=== PATIENT | female | born 1990 | race Caucasian/White ===

== ENCOUNTER → 2017-11-28 10:39 | Outpatient (CLI) | payer MEDICAID ==
[2011-05-13 21:05] VITALS: BMI 36.7
[~2017-11-28 10:39] MED LIST: PRENATAL COMPLE1 TAB PO
[2017-11-28 11:15] LABS: UDS - AMPHET NEGATIVE QUAL (NEGATIVE); UDS - BARB NEGATIVE QUAL (NEGATIVE); UDS - BENZO NEGATIVE QUAL (NEGATIVE); UDS - COCAINE NEGATIVE QUAL (NEGATIVE); UDS - OPIATE NEGATIVE QUAL (NEGATIVE); UDS - PCP NEGATIVE QUAL (NEGATIVE); UDS - THC NEGATIVE QUAL (NEGATIVE)
[2017-11-28 11:18] LABS: APPEARANCE HAZY (CLEAR); BILIRUBIN NEGATIVE (NEGATIVE); COLOR DK YELLOW (YELLOW); EPITHELIAL CELLS 25-50 /hpf (0-5); GLUCOSE NEGATIVE (NEGATIVE); KETONE NEGATIVE (NEGATIVE); NITRITE NEGATIVE (NEGATIVE); PROTEIN TRACE mg/dL (NEGATIVE); RED CELLS - URINE RARE /hpf (0-5); SPECIFIC GRAVITY 1.005 (1.005-1.020); UROBILINOGEN NORMAL (NORMAL)
[2017-11-28 11:19] LABS: BACTERIA MANY /hpf (NONE SEEN); MUCUS <1+ /lpf (NONE SEEN)
[2017-12-04 02:16] VITALS: BMI 36.4
== END | disposition home or self-care (01) ==
LOC: D.LDO 10:39
PROVIDERS: Obstetrics & Gynecology
DX: Z34.83 Encounter for supervision of other normal pregnancy, third trimester (principal); Z3A.38 38 weeks gestation of pregnancy

== ENCOUNTER → 2017-12-02 14:15 | Outpatient (CLI) | payer MEDICAID ==
[2011-05-13 21:05] VITALS: BMI 36.7
[2017-12-02 14:45] LABS: APPEARANCE CLOUDY (CLEAR); BILIRUBIN NEGATIVE (NEGATIVE); COLOR YELLOW (YELLOW); GLUCOSE NEGATIVE (NEGATIVE); KETONE NEGATIVE (NEGATIVE); NITRITE NEGATIVE (NEGATIVE); PROTEIN NEGATIVE (NEGATIVE); RED CELLS - URINE OCC /hpf (0-5)
[2017-12-02 14:46] LABS: BACTERIA MODERATE /hpf (NONE SEEN); CALCIUM OXALATE CRYSTALS OCC /hpf (NONE SEEN); EPITHELIAL CELLS 25-50 /hpf (0-5); MUCUS <1+ /lpf (NONE SEEN)
[2017-12-02 14:48] LABS: UDS - AMPHET NEGATIVE QUAL (NEGATIVE); UDS - BARB NEGATIVE QUAL (NEGATIVE); UDS - BENZO NEGATIVE QUAL (NEGATIVE); UDS - COCAINE NEGATIVE QUAL (NEGATIVE); UDS - OPIATE NEGATIVE QUAL (NEGATIVE); UDS - PCP NEGATIVE QUAL (NEGATIVE); UDS - THC NEGATIVE QUAL (NEGATIVE)
[2017-12-04 02:16] VITALS: BMI 36.4
== END | disposition home or self-care (01) ==
LOC: D.LDO 14:15
PROVIDERS: Obstetrics & Gynecology
DX: O26.893 Other specified pregnancy related conditions, third trimester (principal); Z3A.38 38 weeks gestation of pregnancy

== ENCOUNTER → 2017-12-03 08:26 | Outpatient (CLI) | payer MEDICAID ==
[2011-05-13 21:05] VITALS: BMI 36.7
[2017-12-03 10:03] LABS: APPEARANCE HAZY (CLEAR); BILIRUBIN NEGATIVE (NEGATIVE); COLOR YELLOW (YELLOW); GLUCOSE NEGATIVE (NEGATIVE); KETONE NEGATIVE (NEGATIVE); NITRITE NEGATIVE (NEGATIVE); PROTEIN NEGATIVE (NEGATIVE); SPECIFIC GRAVITY 1.005 (1.005-1.020); UROBILINOGEN NORMAL (NORMAL)
[2017-12-03 10:04] LABS: BACTERIA MODERATE /hpf (NONE SEEN); RED CELLS - URINE RARE /hpf (0-5); WHITE CELLS - URINE 0-5 /hpf (0-5)
[2017-12-03 10:11] LABS: UDS - AMPHET NEGATIVE QUAL (NEGATIVE); UDS - BARB NEGATIVE QUAL (NEGATIVE); UDS - BENZO NEGATIVE QUAL (NEGATIVE); UDS - COCAINE NEGATIVE QUAL (NEGATIVE); UDS - OPIATE NEGATIVE QUAL (NEGATIVE); UDS - PCP NEGATIVE QUAL (NEGATIVE); UDS - THC NEGATIVE QUAL (NEGATIVE)
[2017-12-04 02:16] VITALS: BMI 36.4
== END | disposition home or self-care (01) ==
LOC: D.LDO 08:26
PROVIDERS: Obstetrics & Gynecology
DX: O26.893 Other specified pregnancy related conditions, third trimester (principal); Z3A.38 38 weeks gestation of pregnancy

== ENCOUNTER 2017-12-03 23:50 | Inpatient (IN) | payer MEDICAID ==
[~2017-12-03] VITALS: Ht 152.4 cm; Wt 84.4 kg
--- NOTE | ~2017-12-03 | DS ---
PATIENT:JOE MASCORRO :88 MEDICAL RECORD: [id number] DISCHARGE SUMMARY ADMISSION DATE: 12/03/17 DISCHARGE DATE: 12/06/17 DATE OF ADMISSION: 12/03/2017 DATE OF DISCHARGE: 12/06/2017 ADMISSION DIAGNOSES: 1. Term . 2. Prior section. DISCHARGE DIAGNOSES: 1. Mother delivered at term. 2. Pelvic adhesive disease. ATTENDING PHYSICIAN: Dr. Flores. PROCEDURE PERFORMED WHILE HOSPITALIZED: Repeat section, lysis of adhesions. HISTORY OF PRESENT ILLNESS: See the H&P in the chart. SUMMARY OF HOSPITALIZATION: The patient was admitted to the hospital and underwent repeat section and lysis of adhesions. The patient did well and is discharged to home on postoperative day #2. DISCHARGE MEDICATIONS: Include Percocet and ibuprofen. DISCHARGE INSTRUCTIONS: Standard postoperative and precautions have been reviewed. She will follow up in the clinic in 2 weeks. TRANSINT:[id number] Voice Confirmation ID: [id number] DOCUMENT ID: [id number] JOEL FLORES MD at 1735 CC: [id number] DICTATION DATE: 12/28/17 0737 SHEET METAL TECHNICIAN: 12/28/17 1406 DIS IN 12/06/17 [facility] [address] [place] [address]
--- NOTE | ~2017-12-03 | OP ---
PATIENT NAME: JOE MASCORRO MEDICAL RECORD: [id number] :88 LOCATION:[facility].[id number] ADMISSION DATE:12/03/17 SURGEON: JOSE FLORES MD DATE OF OPERATION: 12/04/2017 PREOPERATIVE DIAGNOSES: 1. History of prior section. 2. Active labor at 39 weeks. POSTOPERATIVE DIAGNOSES: 1. History of prior section. 2. Active labor at 39 weeks. PROCEDURE: Repeat low transverse section with lysis of adhesions. SURGEON: Jose Flores MD ANESTHESIOLOGIST: Dr. Schroeder ANESTHESIA: Spinal. FINDINGS: Viable male infant in the vertex presentation, OP, Apgars are 8 and 9, weight 7 pounds 2 ounces. What was visualized of the tubes and ovaries appears unremarkable. Adhesions of the lower uterine segment to the abdominal wall. SPECIMEN REMOVED: Placenta. SPECIMEN DISPOSITION: Discarded. ESTIMATED BLOOD LOSS: 700 cc. FLUIDS: 1800 cc. URINE OUTPUT: Unknown at this time, noted to be clear though. COMPLICATIONS: None. DRAIN: Capps. INDICATIONS: The patient is a 27-year-old parous female with prior section who presents at term with active labor. The patient is consented for repeat low transverse section. DESCRIPTION OF PROCEDURE: After informed consent was assured, the patient was taken to the operating room where anesthetic was obtained. The patient is now prepped and draped and anesthetic was found to be adequate. Incision was made over the previous scar, carried down to the underlying layer of the fascia, which was opened in the midline and extended laterally. Rectus bellies were dissected free superiorly and inferiorly and then . Dense adhesions were noted in the lower segment. These were taken down with Bovie cautery. A self-retaining ring retractor was inserted and tightened. A bladder blade was inserted and low transverse hysterotomy was performed. 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 The incision was displaced slightly to the right to OPERATIVE REPORT [id number] JOE MASCORRO prevent unintentional laceration of this large vessel complex. After a hysterotomy was performed, the bag was ruptured and light meconium was noted. was delivered on to the abdomen atraumatically. Cord was clamped and cut and the infant was passed to the attendance. Blood was drawn from the cord. Placenta was delivered via Crede maneuver. Uterus was exteriorized, cleared of all clot and debris and returned to the abdomen for the close. Using an Allis clamp, the corners grasped using Ariel forceps, the lower segment elevated and the initial stitch was placed on the left and the chromic stitches as a single layer of running locked stitch across the lower segment. After this was secured, the pelvis was irrigated and the hysterotomy was inspected and found to be hemostatic. The rectus bellies were reapproximated with a loose chromic stitch in the midline. The fascia was closed with a looped PDS. Sponge, lap and needle counts correct times 2 as the skin was reapproximated with 3-0 Monocryl on a PS2 needle. Sterile dressing was applied. TRANSINT:[id number] Voice Confirmation ID: [id number] DOCUMENT ID: [id number] JOSE FLORES MD at 1428 CC: [id number] DICTATION DATE: 12/04/17 0132 [employer]CHO[employer] PRINCIPAL: 12/04/17 0200 ADM IN [facility] [address] [place] [address]
[2017-12-04] VITALS (15 sets, daily range): BP systolic 95–129; BP diastolic 53–77; Ht 152.4 cm; Wt 84.4 kg
[2017-12-04] MEDS ORDERED: PRENATAL COMPLE1 TAB PO (00:27)
[2017-12-04 00:29] LABS: APPEARANCE HAZY (CLEAR); COLOR YELLOW (YELLOW)
[2017-12-04 00:30] LABS: BACTERIA FEW /hpf (NONE SEEN); BILIRUBIN NEGATIVE (NEGATIVE); EPITHELIAL CELLS 0-5 /hpf (0-5); GLUCOSE NEGATIVE (NEGATIVE); HEMATOCRIT 32.2 % (36.0-48.0); HEMOGLOBIN 10.8 g/dL (12-16); KETONE NEGATIVE (NEGATIVE); MCH 27.6 pg (26.0-34.0); MCHC 33.5 g/dL (31.0-37.0); MCV 82.1 fL (80.0-100.0); MEAN PLATELET VOLUME 10.5 fL (7.4-10.4); NITRITE NEGATIVE (NEGATIVE); PROTEIN TRACE mg/dL (NEGATIVE); RBC 3.92 10x6/uL (4.00-5.40); RDW 15.1 % (11.5-14.5); SPECIFIC GRAVITY 1.015 (1.005-1.020); UROBILINOGEN NORMAL (NORMAL); WBC 15.1 10x3/uL (4.8-10.8); WHITE CELLS - URINE 0-5 /hpf (0-5)
[2017-12-04 00:59] LABS: UDS - AMPHET NEGATIVE QUAL (NEGATIVE); UDS - BARB NEGATIVE QUAL (NEGATIVE); UDS - BENZO NEGATIVE QUAL (NEGATIVE); UDS - COCAINE NEGATIVE QUAL (NEGATIVE); UDS - OPIATE NEGATIVE QUAL (NEGATIVE); UDS - PCP NEGATIVE QUAL (NEGATIVE); UDS - THC NEGATIVE QUAL (NEGATIVE)
[2017-12-05 00:30] VITALS: BP 116/56
[2017-12-05 07:24] LABS: RAPID PLASMA REAGIN Non Reactive (Non Reactive)
[2017-12-05 07:30] VITALS: BP 116/72
[2017-12-05 20:22] VITALS: BP 113/58
[2017-12-06 07:40] VITALS: BP 134/74
== END 2017-12-06 16:34 | disposition home or self-care (01) | DRG 766 ==
LOC: D.LD 23:50
PROVIDERS: Obstetrics & Gynecology
PROC: 10D00Z1 Extraction of Products of Conception, Low, Open Approach (ICD-10-PCS; principal; 2017-12-04 07:30)
DX: O34.219 Maternal care for unspecified type scar from previous cesarean delivery (principal); Z3A.39 39 weeks gestation of pregnancy; Z37.0 Single live birth; O99.62 Diseases of the digestive system complicating childbirth; K66.0 Peritoneal adhesions (postprocedural) (postinfection)